=== PATIENT | female | born 2000 | race Caucasian/White ===

== ENCOUNTER 2021-09-19 20:43 | Emergency (ER) | payer SELFPAY ==
--- NOTE | ~2021-09-19 | XR_ITS ---
EXAMINATION: XR CHEST CLINICAL INFORMATION: Cough. COMPARISON: None TECHNIQUE: PA view of the chest was obtained. FINDINGS: No significant abnormality is noted involving the heart, lungs, mediastinum, bony thorax or soft tissues. XR/XR chest 1V IMPRESSION: Unremarkable examination.
[2021-09-19 23:58] VITALS: BP 132/82; PULSE 108; RESP 20; TEMP 37.2; O2SAT 97; BMI 36.5
--- NOTE | 2021-09-20 00:37 | ED_ITS ---
HPI - URI/Sore Throat General Chief Complaint: Upper Respiratory Symptoms Stated Complaint: Flu like symptoms Time Seen by Provider: 09/20/21 00:32 Source: patient Mode of arrival: ambulatory Limitations: no limitations History of Present Illness HPI Narrative: This is a 21-year-old female presenting to the emergency department with complaints of fever, cough, body aches and pains, nasal congestion, malaise, landy lgias, sore throat x2 days. Patient tells me that this all started yesterday suddenly, she tells me she has been feeling like he has a fever and she has been taking ibuprofen with relief. She tells me that her throat is burning and it hurts a lot. She tells me that she was positive for COVID last month. She is vaccinated against COVID. Patient denying chest pain, shortness of breath, nausea, vomiting, abdominal pain, headache, dizziness, cough, changes in voice, trouble controlling secretions, leg pain or swelling. No sick contacts MD elicited complaint: nasal congestion Onset (ago): day(s) (2) Consistency: constant Severity: moderate Able to tolerate fluids by mouth: Yes Exacerbating factors: nothing Relieving factors: nothing Associated symptoms: fever and chills Related Data Previous Rx's Medication Instructions Recorded amoxicillin 500 mg capsule 500 mg PO BID 7 days #14 caps 09/20/21 prednisone 20 mg tablet 20 mg PO DAILY 5 days #5 tabs 09/20/21 Allergies Allergy/AdvReac Type Severity Reaction Status Date / Time No Known Allergies Allergy Verified 09/20/21 00:00 Review of Systems Review of Systems: Constitutional : No Weight loss, + Fever, + Chills, + Fatigue, + Malaise ENT/Mouth : + sore throat, No Rhinorrhea, + nasal congestion Eyes: No Eye Pain, No Swelling, No Redness Cardiovascular : No Chest Pain, No SOB, No Dyspnea on Exertion, No Orthopnea, No Edema, No Palpitations Respiratory : No Cough, No Sputum, No Wheezing Gastrointestinal : No Nausea, No Vomiting, No Diarrhea, No Constipation, No abdominal Pain, No Hematochezia, No Melena Genitourinary : No Dysuria, No Urinary Frequency, No Hematuria, Musculoskeletal : No joint pain, + Myalgias, No Joint Swelling Skin : No Skin Lesions, No rash Neuro : No Weakness, No Numbness, No Dizziness, No Headache All other systems reviewed and are negative Yes all other systems are reviewed and are negative [facility] [place] Past Medical History Attestation statement: The following information was validated with the patient. Source: old records reviewed and nursing notes reviewed Social History Social History Advance Directives: No Advance Directives Information Provided: Yes Physical Exam Vital Signs: Vital Signs: Last Vital Signs Temp 97.8 F 09/20/21 00:54 Pulse 74 09/20/21 00:54 Resp 16 09/20/21 00:54 BP 134/78 09/20/21 00:54 Pulse Ox 98 09/20/21 00:54 O2 Del Method 09/20/21 00:54 BMI result Body Mass Index 36.5 VSS Appearance: Alert.? Oriented X3.? No acute distress.? Head: Normocephalic, atraumatic, no step-offs or deformities Eyes: Pupils equal, round and reactive to light.? ENT: Pharynx with erythema bilaterally, no signs of peritonsillar abscess, uvula midline, controlling secretions well and speaking in full sentences. Neck: Normal inspection.? Neck supple.? No palpable lymphadenopathy CVS: Normal heart rate and rhythm.? Pulses normal.? Respiratory: No respiratory distress.? Breath sounds normal.? Abdomen: Soft and nontender.? Skin: Skin warm and dry.? Normal skin color.? Normal skin turgor.? Extremities: No lower extremity edema.? No calf ttp. 5/5 strength to bilateral upper and lower extremities Neuro: Oriented X 3.? No motor deficit.? No sensory deficit. CN 2-12 intact Course Reevaluation(s) Reevaluation #1: chest x-ray with no acute findings. Monospot negative. Strep negative. At this time patient will be discharged home on amoxicillin and prednisone for possible pharyngitis. Advised to return with new or worsening symptoms. Outlying these on her discharge. Likely viral infection or pharyngitis. Comfortable with discharge home with PCP follow-up. Time: 01:16 MDM - URI/Sore Throat MDM Narrative Medical decision making narrative: [age]-year-old female presents with flu-like symptoms x2 days. Denies chest pain, shortness of breath, leg swelling. Physical examiation significant for erythema to posterior pharynx, no lymphadenopathy, no signs of abscess. Plan at this time is to obtain COVID, influenza, mono, strep test. History and physical examination of low suspicion for PE, pneumonia, peritonsillar abscess, epiglottitis. Erickaley viral infection or pharyngitis Medical Records Attestation: I reviewed the patient's medical records. Lab Data Attestation: I reviewed the patient's lab results. Labs: Lab Results 09/20/21 09/20/21 09/20/21 Range/Units 00:45 00:45 00:45 COVID-19 (TISHA) Negative (Negative) COVID-19 Clin Com See Note Monoscreen (Negative) Influenza Type A (JEROME) Negative (Negative) Influenza Type B (JEROME) Negative (Negative) Influenza A & B Note See Note S. pyogenes GrpA JEROME Negative (Negative) 09/20/21 Range/Units 00:49 COVID-19 (TISHA) (Negative) COVID-19 Clin Com Monoscreen Negative (Negative) Influenza Type A (JEROME) (Negative) Influenza Type B (JEROME) (Negative) Influenza A & B Note S. pyogenes GrpA JEROME (Negative) Critical Care Time Critical Care Time Critical Care Time: No Discharge Plan Discharge Clinical Impression: Viral infection, Pharyngitis Patient Disposition: Home, Self-Care Instructions: Viral Syndrome (ED) Additional Instructions: Take your medications as prescribed. If you were prescribed antibiotics today, it is important that you take your medication to their entirety, do not skip any doses, do not finish them early. Follow-up with your primary care provider this week. Return to the emergency department with new or worsening symptoms. Such as fevers, chills, chest pain, shortness of breath, nausea, vomiting, dizziness, headache, vision changes, lethargy In case of emergency call 911 Negative for Smyth, Strep, Flu, COVID Prescriptions: New amoxicillin 500 mg capsule 500 mg PO BID 7 Days Qty: 14 0RF prednisone 20 mg tablet 20 mg PO DAILY 5 Days Qty: 5 0RF Referrals: Physician,Nonstaff [Primary Care Provider] - 2 days Stand Alone Forms: Work/School Release
[2021-09-20 00:54] VITALS: BP 134/78; PULSE 74; RESP 16; TEMP 36.6; O2SAT 98
[2021-09-20 01:04] LABS: Strep A Nucleic Acid Negative (Negative)
[2021-09-20 01:12] LABS: Monotest Negative (Negative)
[2021-09-20 01:16] LABS: COVID-19 Test Negative (Negative); IDNOW Serial# 16C4AD1C; Influenza A Negative (Negative); Influenza B2 Negative (Negative)
== END 2021-09-20 01:46 | disposition home or self-care (01) ==
PROVIDERS: Physician Assistant; Emergency Provider Emergency Medicine
DX: B34.9 Viral infection, unspecified (principal); R50.9 Fever, unspecified; J02.9 Acute pharyngitis, unspecified; R05.9 Cough, unspecified; M79.10 Myalgia, unspecified site; Z20.822 Contact with and (suspected) exposure to COVID-19; Z79.899 Other long term (current) drug therapy
CPT/HCPCS: 36415; 71045; 86308; 87502; 87635; 87651; 99283

== ENCOUNTER 2023-08-16 10:18 | Emergency (ER) | payer OTHER, SELFPAY ==
--- NOTE | 2023-08-16 10:22 | ECG_ITS ---
Test Reason : CHEST PAIN/TACHY Blood Pressure : / mmHG Vent. Rate : 068 BPM Atrial Rate : 068 BPM P-R Int : 156 ms QRS Dur : 102 ms QT Int : 404 ms P-R-T Axes : 073 056 038 degrees QTc Int : 429 ms Normal sinus rhythm with sinus arrhythmia Normal ECG No previous ECGs available Referred By: Generic ED Physician Electronically Signed By:JUAN MANUEL SINGH
[2023-08-16 10:31] VITALS: BP 123/77; PULSE 65; RESP 18; TEMP 36.4; O2SAT 99; BMI 36.9
[2023-08-16 11:00] LABS: MANUAL DIFF FLAG NO
[2023-08-16 11:02] LABS: Basophils Percent Auto 0.3 % (0-2); Eosinophils Absolute Auto 0.1 X10*3/uL (0.0-0.4); Eosinophils Percent Auto 0.6 % (0-4); Hematocrit 38.4 % (37.0-47.0); Hemoglobin 12.6 g/dl (12.0-16.0); Imm Gran Abs Auto 0.04 X10*3/uL (0.00-0.03); Imm Gran Pct Auto 0.4 % (0.0-0.4); Lymphocytes Absolute Auto 2.9 X10*3/uL (1.2-4.9); Lymphocytes Percent Auto 30.1 % (20-40); Mean Corpuscular HGB Conc 32.8 g/dl (31.0-35.0); Mean Corpuscular Hemoglobin 26.4 pg (27.0-33.0); Mean Corpuscular Volume 80.5 fL (80.0-98.0); Mean Platelet Volume 9.1 fL (9.4-12.3); Monocytes Absolute Auto 0.6 X10*3/uL (0.1-1.2); Monocytes Percent Auto 6.5 % (2-11); Neutrophils Percent Auto 62.1 % (45-73); Platelet Count 273 X10*3/uL (160-400); Red Blood Count 4.77 X10*6/uL (4.20-5.50); Red Cell Distribution Width 14.1 % (11.0-16.0); White Blood Count 9.7 X10*3/uL (4.8-10.8)
[2023-08-16 11:24] LABS: Alanine Aminotransferase 22 U/L (0-31); Alkaline Phosphatase 93 U/L (39-117); Anion Gap 13 (12-20); Aspartate Amino Transferase 20 U/L (5-31); Bilirubin Total 0.4 mg/dL (0.0-1.0); Blood Urea Nitrogen 13 mg/dL (9-16); Calcium 9.5 mg/dL (8.4-10.2); Carbon Dioxide 23 mmol/L (22-29); Chloride 106 mmol/L (96-108); Creatinine Clr Calc Pharmacy 162.5; Estimated Glomerular Filt Rate > 60; Glucose Random 112 mg/dL (60-115); Potassium 4.1 mmol/L (3.3-5.1); Sodium 138 mmol/L (135-145); Total Protein 7.4 g/dL (6.5-8.0)
[2023-08-16 15:39] LABS: Troponin-I High Sensitivity < 2.7 ng/L (<3.5-17.0)
== END 2023-08-16 20:25 | disposition left against medical advice (07) ==
PROVIDERS: Physician Assistant Medical; Emergency Provider Emergency Medicine
DX: R07.89 Other chest pain (principal); I10 Essential (primary) hypertension; Z79.899 Other long term (current) drug therapy
CPT/HCPCS: 36415; 80053; 84484; 85025; 93005; 99283

== ENCOUNTER → 2023-08-16 10:22 | Outpatient (BNV) | payer OTHER, SELFPAY | PROVIDERS: Emergency Provider Emergency Medicine; Visit Provider Internal Medicine | DX: R07.9 Chest pain, unspecified (principal) | CPT/HCPCS: 93010 ==